=== PATIENT | female | born 1930 | race Caucasian/White ===

== ENCOUNTER → 2016-05-24 | Outpatient (CLI) | payer OTHER, BC ==
[~2016-05-24] MED LIST: ACETAMINOPHEN325 M1 PO; ASA81BEC PO; ASPIRIN325 PO; CALCIUM 500 WI1 EAC3; CALCIUM 600 +1 EAC1 PO; CAPTOPRIL 25 MG25 M1 PO; CENTRUM SILVER1 EAC4 PO; CIPROFLOXACIN500 M3 PO; COUMADIN 3 MG TA3 M1 PO; COUMADIN 3 MG TA3 MG PO; DOXYCYCLINE 10100 M1 PO; FISH OIL 1,001000 M1; FISH OIL 1,001000 M2 PO; FLAX OIL1000 MG; FLAX SEED OIL1000 MG PO; FOSAMAX 70 MG T70 M1 PO; FOSAMAX 70 MG T70 MG PO; HYDROCHLOROTH12.5 M1 PO; HYDROCHLOROTH12.5 MG; HYDROCHLOROTH12.5 MG PO; KEFLEX250 MG PO; LISINOPRIL10 MG PO; LISINOPRIL40 MG PO; MULTIVITAMINS1 EAC7 PO; PACERONE 200 M200 M1 PO
== END ==
LOC: RAD 01:16
DX: Z12.31 Encounter for screening mammogram for malignant neoplasm of breast (principal)

== ENCOUNTER 2017-03-16 11:09 | Emergency (ER) | payer OTHER, BC ==
[~2017-03-16] VITALS: Ht 165.1 cm; Wt 61.2 kg
--- NOTE | ~2017-03-16 | EKG ---
[address] [address] ELECTROCARDIOGRAM REPORT Name: BRIAN REYES Room #: [facility]#: [id number] Admission: 03/16/17 Attend Phys: Discharge: 03/16/17 Date of : 28 Report #: [id number] THIS REPORT FOR: //name// [facility] ED Test Date: 2017-03-16 Test Time: 11:20:56 Pat Name: BRIAN REYES Department: Room: Gender: F Hospice Admitting Clerk: JEN : 1930 Requested By: Cam Turcios Order Number: [id number] MD: Martir Monteiro Measurements Intervals [place] Rate: 81 P: 16 [place]: 242 QRS: -50 QRSD: 132 T: 39 QT: 406 QTc: 472 Interpretive Statements Sinus rhythm Prolonged WA interval RBBB and LAFB Left ventricular hypertrophy Electronically Signed On 03-16-2017 16:52:21 FREIGHT CLAIM INVESTIGATOR by Martir Monteiro [email or web address] <ELECTRONICALLY SIGNED> By: Martir Monteiro MD 03/16/17 1652 1120 1120 MD ASHLEY Marx
[2017-03-16 11:39] LABS: ABSOLUTE NEUTROPHILS 7.1 thou/uL (1.4-8.2); BASOPHILS 0.6 % (0.0-2.0); EOSINOPHILS 1.1 % (0.0-3.0); HEMATOCRIT 44.9 % (37.0-47.0); HEMOGLOBIN 15.6 gm/dL (12.0-15.0); LYMPHOCYTES 19.3 % (24.0-44.0); MCH 32.4 pg (26.0-34.0); MCHC 34.7 g/dL (28.0-37.0); MCV 93.5 fL (80.0-100.0); MONOCYTES 10.9 % (1.0-8.0); PLATELET COUNT 339 thou/uL (150-400); POLYS 68.1 % (36.0-66.0); RDW 13.9 % (10.5-14.5); WBC 10.5 thou/uL (4.0-11.0)
[2017-03-16 11:43] LABS: ANION GAP 13 mmol/L (7-16); BUN 20 mg/dL (7-18); CALCIUM 10.3 mg/dL (8.5-10.1); CHLORIDE 98 mmol/L (98-107); CO2 29 mmol/L (21-32); CREATININE 1.2 mg/dL (0.6-1.0); GLUCOSE 105 mg/dL (74-106); POTASSIUM 3.4 mmol/L (3.5-5.1); SODIUM 140 mmol/L (136-145)
[2017-03-16 11:51] LABS: ALBUMIN 3.9 g/dL (3.4-5.0); SGOT 22 U/L (15-37); SGPT 22 U/L (30-65); TOTAL BILIRUBIN 0.5 mg/dL (<0.1-1.0); TOTAL PROTEIN 8.5 g/dL (6.4-8.2); TROPONIN-I < 0.04 ng/mL (<0.06)
[2017-03-16 11:53] LABS: INR 1.9
[2017-03-16 12:55] LABS: URINE BILIRUBIN NEGATIVE (Negative); URINE BLOOD TRACE (Negative); URINE CLARITY CLEAR; URINE COLOR YELLOW; URINE GLUCOSE-RANDOM* NEGATIVE (Negative); URINE KETONES NEGATIVE (Negative); URINE NITRITE-REFLEX NEGATIVE (Negative); URINE PROTEIN (DIPSTICK) NEGATIVE (Negative); URINE UROBILINOGEN 0.2 E.U./dl (0.2-1.0)
[2017-03-16 12:56] LABS: URINE LEUKOCYTES-REFLEX 3+ (Negative)
[2017-03-16 13:04] LABS: SQUAMOUS 0-3 Few /LPF (0-3)
[2017-03-16 13:05] LABS: WBC CLUMPS Few (None Seen)
[2017-03-16 13:06] LABS: CASTS None Seen /LPF (None Seen); URINE RBC 3-10 Few /HPF (0-2)
[2017-03-16 13:07] LABS: CRYSTALS None Seen /LPF (None Seen); MUCUS 0-3 Light strn/LPF (None Seen)
[2017-03-16 13:59] VITALS: BP 123/63
[2017-03-16] MEDS ORDERED: ANTIVERT25 MG PO (14:07)
[2017-03-16] MEDS ORDERED: CIPRO500 MG PO (14:07)
== END 2017-03-16 14:00 | disposition home or self-care (01) ==
LOC: ER
PROVIDERS: Physician Assistant
DX: N39.0 Urinary tract infection, site not specified (principal); R20.2 Paresthesia of skin; I10 Essential (primary) hypertension; Z88.2 Allergy status to sulfonamides

== ENCOUNTER → 2017-07-28 | Outpatient (CLI) | payer OTHER, BC ==
[~2017-07-28] MED LIST changes: +ANTIVERT25 MG PO; +CIPRO500 MG PO
== END ==
LOC: RAD 00:13
DX: Z12.31 Encounter for screening mammogram for malignant neoplasm of breast (principal)

== ENCOUNTER → 2017-08-03 | Outpatient (CLI) | payer OTHER, BC | LOC: ULTRA 09:03 | DX: N60.01 Solitary cyst of right breast (principal) ==

== ENCOUNTER 2017-12-17 09:23 | Emergency (ER) | payer OTHER, BC ==
[~2017-12-17] VITALS: Ht 162.6 cm; Wt 63.5 kg
[2017-12-17] MEDS ORDERED: AZITHROMYCIN 2250 MG PO (11:05)
[2017-12-17] MEDS ORDERED: TESSALON PERLE100 MG PO (11:05)
== END 2017-12-17 11:25 | disposition home or self-care (01) ==
LOC: ER 09:23
DX: J18.8 Other pneumonia, unspecified organism (principal); Z88.2 Allergy status to sulfonamides; Z95.0 Presence of cardiac pacemaker

== ENCOUNTER → 2018-01-17 | Outpatient (CLI) | payer OTHER, BC ==
[~2018-01-17] MED LIST changes: +AZITHROMYCIN 2250 MG PO; +TESSALON PERLE100 MG PO
== END ==
LOC: ULTRA 10:36
DX: N63.11 Unspecified lump in the right breast, upper outer quadrant (principal)

== ENCOUNTER → 2018-05-21 | Outpatient (CLI) | payer OTHER, BC ==
--- NOTE | 2018-05-21 09:56 | 2DMMODE ---
[facility] [place] [address] 2 D/M-MODE ECHOCARDIOGRAM Name: BRIAN REYES Room #: [facility]#: [id number] ������������� Admission: 05/21/18 ������������� Attend Phys: Martir Monteiro Discharge: ��� ������������� ��� Date of : 28 Date of Service: 05/21/18 0956 �� Report #: [id number] �������� ��������������������������������������������[id number] THIS REPORT FOR: //name// APPROVED REPORT Study performed: 05/21/2018 09:09:20 EXAM: Comprehensive 2D, Doppler, and color-flow Echocardiogram Patient Location: Out-Patient Status: routine BSA: 1.66 HR: 69 bpm BP: 128/60 mmHg Rhythm: Pacemaker Other Information Study Quality: Good Indications Afib-Pacemaker. 2D Dimensions RVDd: 36.14 mm IVSd: 11.36 (7-11mm) LVOT Diam: 19.19 (18-24mm) LVDd: 37.89 mm PWd: 7.57 (7-11mm) Ascending Ao: 39.27 (22-36mm) LVDs: 27.96 (25-40mm) Aortic Root: 33.40 mm Volumes Left Atrial Volume (Systole) Single Plane 4CH: 48.31 mL Single Plane 2CH: 62.47 mL LA ESV Index: 37.00 mL/m2 Aortic Valve AoV Peak Edgardo.: 2.55 m/s AO Peak Gr.: 26.05 mmHg LVOT Max P.15 mmHg AO Mean Gr.: 15.16 mmHg AO V2 Mean: 1.89 m/s LVOT Max V: 1.02 m/s AO V2 VTI: 56.54 cm FILIBERTO Vmax: 1.15 cm2 AI Vmax: 4.36 m/s AI Kings: 2.93 m/s2 AI PHT: 431.46 ms [facility] [place] [address] 2 D/M-MODE ECHOCARDIOGRAM Name: BRIAN REYES [id number] ������������� Admission: 05/21/18 ������������� Attend Phys: Martir Monteiro Discharge: ��� ������������� ��� Date of : 28 Date of Service: 05/21/18 0956 �� Report #: [id number] �������� ��������������������������������������������[id number] Mitral Valve E/A Ratio: 0.6 MV Decel. Time: 307.43 ms MV E Max Edgardo.: 0.74 m/s MV A Edgardo.: 1.29 m/s MV PHT: 89.15 ms IVRT: 96.89 ms Pulmonary Valve PV Peak Edgardo.: 1.13 m/s PV Peak Gr.: 5.09 mmHg Pulmonary Vein P Vein S: 0.36 m/s P Vein A: 0.20 m/s P Vein D: 0.32 m/s P Vein S/D Ratio: 1.13 Tricuspid Valve TR Peak Edgardo.: 3.60 m/s RAP Estimate: 5.00 mmHg TR Peak Gr.: 51.96 mmHg PA Pressure: 57.00 mmHg Left Ventricle The left ventricle is normal size. Mild basal septal hypertrophy is present. Left ventricular systolic function is normal. LVEF is 55-60%. Mild diastolic dysfunction is present (impaired relaxation pattern). Right Ventricle The right ventricle is normal size. The right ventricular systolic function is normal. Pacemaker lead is present in the right ventricle. Atria Left atrium is mildly dilated. The right atrium size is normal. Aortic Valve Aortic valve is moderately calcified. Mild to moderate aortic regurgitation. 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 Maximum pressure gradient of 26 mmHg and mean pressure gradient of 16 mmHg. Mitral Valve Mitral valve leaflets are mildly thickened. Mild mitral annular calcification. Mild to moderate mitral regurgitation. [facility] [address] [place] [address] 2 D/M-MODE ECHOCARDIOGRAM Name: REYESBRIAN Room #: REG [facility]#: [id number] ������������� Admission: 05/21/18 ������������� Attend Phys: Martir Chaudhary Couchonnal Discharge: ��� ������������� ��� Date of : 28 Date of Service: 05/21/18 0956 �� Report #: [id number] �������� ��������������������������������������������[id number] Tricuspid Valve The tricuspid valve is normal in structure. Moderate tricuspid regurgitation. Estimated PAP is 55-60mmHg. Pulmonic Valve The pulmonary valve is normal in structure. Trace pulmonic regurgitation. Great Vessels The aortic root is normal in size. Ascending aorta is mildly dilated at 3.9cm. IVC is normal in size and collapses >50% with inspiration. Pericardium There is no pericardial effusion. <Conclusion> The left ventricle is normal size. Left ventricular systolic function is normal. Mild diastolic dysfunction is present (impaired relaxation pattern). The right ventricle is normal size. Pacemaker lead is present in the right ventricle. Left atrium is mildly dilated. Mild to moderate aortic regurgitation. 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 Mild to moderate mitral regurgitation. Moderate tricuspid regurgitation. Estimated PAP is 55-60mmHg. ��������������������������������������������� <ELECTRONICALLY SIGNED> ���������������������������������������� By: Abad Zarate MD ��������������������������������������������� 05/21/1856 5 5 Abad Zarate MD /INF
== END ==
LOC: CV 08:47
DX: I08.3 Combined rheumatic disorders of mitral, aortic and tricuspid valves (principal); I48.91 Unspecified atrial fibrillation

== ENCOUNTER 2018-12-17 09:50 | Emergency (ER) | payer OTHER, BC ==
[~2018-12-17] VITALS: Ht 165.1 cm; Wt 57.1 kg
[2018-12-17] MEDS ORDERED: ZESTRIL20 MG PO ×2 (10:02)
[2018-12-17] MEDS ORDERED: NORVASC5 MG PO ×2 (10:02)
[2018-12-17] MEDS ORDERED: PACERONE100 MG PO ×2 (10:02)
[2018-12-17 10:29] LABS: ABSOLUTE NEUTROPHILS 5.5 thou/uL (1.4-8.2); BASOPHILS 0.5 % (0.0-2.0); EOSINOPHILS 1.2 % (0.0-3.0); HEMOGLOBIN 14.5 gm/dL (12.0-15.0); LYMPHOCYTES 18.8 % (24.0-44.0); MCH 32.1 pg (26.0-34.0); MCHC 33.7 g/dL (28.0-37.0); MCV 95.4 fL (80.0-100.0); MONOCYTES 10.3 % (1.0-8.0); PLATELET COUNT 339 thou/uL (150-400); POLYS 69.2 % (36.0-66.0); RBC 4.51 mil/uL (4.20-5.00); RDW 14.2 % (10.5-14.5)
[2018-12-17 10:33] LABS: ANION GAP 8 mmol/L (7-16); BUN 16 mg/dL (7-18); CALCIUM 9.6 mg/dL (8.5-10.1); CHLORIDE 100 mmol/L (98-107); CO2 29 mmol/L (21-32); CREATININE 1.1 mg/dL (0.6-1.0); GLUCOSE 96 mg/dL (74-106); POTASSIUM 3.5 mmol/L (3.5-5.1); SODIUM 137 mmol/L (136-145)
[2018-12-17 10:40] LABS: APTT 32.8 Seconds (24.5-32.8); PROTIME 27.2 Seconds (9.3-11.4)
[2018-12-17 10:42] LABS: INR 2.6
[2018-12-17 10:44] LABS: ALBUMIN 3.4 g/dL (3.4-5.0); MAGNESIUM 2.1 mg/dL (1.8-2.4); SGOT 18 U/L (15-37); SGPT 12 U/L (30-65); TOTAL BILIRUBIN 0.4 mg/dL (<0.1-1.0); TOTAL PROTEIN 8.2 g/dL (6.4-8.2); TROPONIN-I <0.06 ng/mL (<0.06)
[2018-12-17 11:30] LABS: URINE BILIRUBIN NEGATIVE (Negative); URINE BLOOD TRACE (Negative); URINE CLARITY CLEAR; URINE COLOR YELLOW; URINE GLUCOSE-RANDOM* NEGATIVE (Negative); URINE KETONES NEGATIVE (Negative); URINE NITRITE-REFLEX NEGATIVE (Negative); URINE PROTEIN (DIPSTICK) NEGATIVE (Negative); URINE SPECIFIC GRAVITY <= 1.005 (1.005-1.035); URINE UROBILINOGEN 0.2 E.U./dl (0.2-1.0)
[2018-12-17 11:31] LABS: URINE LEUKOCYTES-REFLEX 2+ (Negative)
[2018-12-17 11:43] LABS: BACTERIA-REFLEX 1-9 Few /HPF (None Seen); CASTS None Seen /LPF (None Seen); CRYSTALS None Seen /LPF (None Seen); SQUAMOUS 0-3 Few /LPF (0-3); URINE RBC 0-2 Rare /HPF (0-2); URINE WBC-REFLEX 6-15 Few /HPF (0-5)
[2018-12-17 11:44] LABS: AMP/METHAMP Negative (Negative); BARBITURATES Negative (Negative); BENZODIAZEPINES Negative (Negative); COCAINE Negative (Negative); METHADONE Negative (Negative); OPIATES Negative (Negative); PCP Negative (Negative)
[2018-12-17] MEDS ORDERED: VALIUM2 MG PO (12:25)
[2018-12-17] MEDS ORDERED: KEFLEX500 M1 PO (12:36)
[2018-12-17 13:02] VITALS: BP 166/79
--- NOTE | 2018-12-18 08:34 | EKG ---
[place] [address] [facility] [employer] [address] ELECTROCARDIOGRAM REPORT Name: BRIAN REYES Room #: [facility]#: [id number] Admission: 12/17/18 Attend Phys: Discharge: 12/17/18 Date of : 28 Report #: [id number] THIS REPORT FOR: //name// [facility] ED Test Date: 2018-12-17 Test Time: 10:33:09 Pat Name: BRIAN REYES Department: Room: Gender: F Bereavement Program Coordinator: YESSY : 1930 Requested By: Indio Euceda Order Number: [id number] MD: Jimmy Crawford Measurements Intervals [place] Rate: 60 P: -31 ND: 306 QRS: -43 QRSD: 123 T: -10 QT: 488 QTc: 488 Interpretive Statements Sinus rhythm with atrial pacing Prolonged ND interval RBBB and LAFB Left ventricular hypertrophy Compared to ECG 03/16/2017 11:20:56 Atrial pacing is now present Electronically Signed On 12-18-2018 8:34:36 CDT by Jimmy Crawford [email or web address] <ELECTRONICALLY SIGNED> By: Jimmy Crawford MD, [facility] 12/18/18 0834 1033 1033 Jimmy Crawford MD, [facility] /EPI
--- NOTE | 2018-12-19 15:34 | H ---
[facility] [address] [place] [address] HISTORY AND PHYSICAL Name: BRIAN LANGFORD Room #: DEP Ralph#: [id number] Admission: 12/17/18 Attend Phys: Discharge: 12/17/18 Date of : 28 Report #: [id number] THIS REPORT FOR: //name// CC: Indio Culver MD DATE OF SERVICE: 12/17/2018 CHIEF COMPLAINT: Fall. HISTORY OF PRESENT ILLNESS: The patient is an 88-year-old white female who lives in the [facility] and has been complaining of some "vertigo" recently. She was actually seen in the Emergency Room the day prior to this admission with complaints of loss of balance. She was felt to be otherwise medically stable and treated for urinary tract infection and discharged back home again. She reports that last evening, she suddenly fell without warning and landed on her left side and was very much a week and then could not get up under her own power. Her , also elderly, went across the street to get the help of a neighbor and they were able to get her up her and put her on the couch where she remained for the rest of the night. She did notice at that time that she was having difficulty with her speaking and with continuing weakness on her left side, especially in her left leg and left arm. I specifically asked her about difficulties with vision and recognizing people and she denied being a problem, but it is apparent from the Emergency physician's note that she actually was having difficulty focusing on the players while watching the [employer] baseball game on television. She specifically told me that she had problems with blurring of her speech last night, but that was much better today. She is admitted for further evaluation and treatment. PAST MEDICAL HISTORY: Chronic hypertension, osteoarthritis multiple sites, sick sinus syndrome with permanent pacemaker placement approximately 5 years ago. She has had problems on and off in the past with vertigo. She has had episodes of going back documented at least as far as 2011 where she noted neurologic deficits such as numbness and tingling transiently in her left arm and left leg. Prior workups were essentially negative for bleeding, tumor or stroke, but presence of atherosclerotic disease in the intracranial arterial circulation was documented. She also has a history of hyperlipidemia and osteoporosis. FAMILY HISTORY: Significant for heart attack in her mother. Her father of cancer of the liver. I believe 2 of the patient's 4 children have of unrelated causes. ALLERGIES: Please note that the patient has [place] [address] HISTORY AND PHYSICAL Name: BRIAN LANGFORD Room #: DEP RA Rosas#: [id number] Admission: 12/17/18 Attend Phys: Discharge: 12/17/18 Date of : 28 Report #: [id number] CURRENT MEDICATIONS: Include multivitamin, calcium with vitamin D3, Fosamax weekly, warfarin 3 mg daily, lisinopril 20 mg daily, amiodarone 100 mg daily by mouth, and amlodipine 5 mg by mouth daily. She was previously on larger doses of lisinopril and was previously on a less frequent dose of amlodipine because of problems with dizziness in the past year and apparent orthostatic hypotension. SOCIAL HISTORY: The patient is to [employer]. She has no vices. In particular, she has never been a smoker or abuse alcohol or recreational drugs. REVIEW OF SYSTEMS: The patient denies headache. The patient denies dizziness at this time or last night. The patient denies any vision changes, but please see the Emergency Room physician's note with regards to her difficulty recognizing baseball players on her television set just after her fall. No vertigo. No nausea or vomiting. No chest pain or shortness of breath. No new joint pains or back pain. She does have some left side pain in the lower thoracic cage laterally that she has only noticed since the fall. She denies any difficulties with bladder or bowel continence. She denies any loss of consciousness. She noticed that the weakness on the left side and the difficulty with speech that both problems seemed to be gradually going away, but have not resolved completely yet approximately 26 hours in her symptoms. PHYSICAL EXAMINATION: GENERAL: The patient is an exceedingly pleasant elderly white female. HEENT: Extraocular muscles are intact. The pupils react normally and equally to light. The oropharynx is slightly dry and pink without lesions, exudates or lacerations. Sinuses are nontender. Hearing is very slightly diminished on the right side, and this is a chronic finding. NECK: No carotid bruit noted. No neck masses. Good range of motion of the neck. LUNGS: Clear to auscultation bilaterally. CARDIOVASCULAR: Reveals a regular rhythm with a 2-3/6 systolic ejection murmur chronically at time of the exam. The pacemaker is noted in the left pre-axillary fossa. ABDOMEN: Soft. Bowel sounds are present, no visceromegaly or masses. There is slight tenderness of the left lateral lower thorax without evidence of bruising or fracture. EXTREMITIES: Without cyanosis or clubbing or peripheral edema. The patient actually has very good cell maker strength bilaterally. Her extremities, she is able to move all 4 of them independently of one another and on command. She does have some vague weakness that is mildly greater on the left than the right. I did not assess her gait today, but she tells me that with assistance she was able to walk from her gurney to the bathroom when she was in the Emergency Room hours earlier today. NEUROLOGIC: Cranial nerves 2-12 are intact. No Babinski sign on either side [facility] [address] [place] [address] HISTORY AND PHYSICAL Name: AMYBRIAN Roldan Room #: DEP [facility].#: [id number] Admission: 12/17/18 Attend Phys: Discharge: 12/17/18 Date of : 28 Report #: [id number] noted. The sensory exam is grossly equal and normal bilaterally. Motor deficit as outlined above and minimal at this time. Again gait was not assessed by me during this visit. No rectal or breast exam was performed during this physical. On 12/17/2018 Emergency Room visit had the following objective lab and radiography and EKG findings: EKG showed a sinus rhythm with atrial pacing, prolonged AZ interval, presence of bifascicular block and left ventricular hypertrophy noted. The only change compared with EKG from February 2017 was the presence of atrial pacing. The rate at the time of this exam was 60 beats per minute. The CBC showed white blood cell count of 8000 with 69.2% neutrophils, 18.8% lymphocytes, 10.3% monocytes, 1.2% eosinophils and basophils is 0.5%. The absolute neutrophil count was 5500, hemoglobin 14.5, hematocrit 43.0%. The red blood cell indices are normal and the platelet count is 339,000. Protime yesterday in the morning was 27.2 with an INR of 2.6 and a PTT of 32.8. The chemistry showed a sodium 137, potassium 3.5, chloride of 100, bicarbonate 29, BUN of 16, creatinine 1.1. The anion gap is 8, glucose was 96, nonfasting. AST was 18, ALT was 12. Total bilirubin was 0.4, calcium was 9.6, magnesium 2.1, total protein 8.2, albumin 3.4. The estimated GFR was 47, alkaline phosphatase was 79 and normal. Alcohol level was negative. TSH at that time was 2.477 and in the normal range. Urinalysis done that day showed 6-15 white blood cells and is otherwise fairly benign. CT head done at that time showed no evidence of acute intracranial hemorrhage or other acute intracranial abnormality. Rapid drug screen was also done that day and it was negative for amphetamines, methamphetamines, barbiturates, benzodiazepines, cocaine, methadone, opiates, PCP and marijuana. Chest x-ray done that day showed no acute cardiopulmonary abnormality. EKG from the date of this admission shows a sinus rhythm, left atrial enlargement, again right bundle branch block and left anterior fascicular block and absence of atrial paced complexes and a rate of 67 beats per minute. The hematology showed white blood cell count of 10,900 with 75.8% neutrophils, 13.2% lymphocytes, 9.9% monocytes, 0.7% eosinophils, and 0.4% basophils. Absolute neutrophil count was borderline elevated at 8300, hemoglobin was 14.6, hematocrit 42.7. Normal red blood cell indices and again platelet count of 326,000. Protime was done today and the INR was 2.2 and otherwise unremarkable. The chemistry showed a sodium 138, potassium 4.4, chloride 102, bicarbonate 31, BUN of 17, creatinine 1.1, anion gap was 5. Glucose 130, nonfasting. The AST was 18, ALT was 16, alkaline phosphatase was 91, total bilirubin of 0.5. Calcium was slightly elevated at 10.2 with an upper limits of normal at 10.1, total protein was 8.0 and the albumin was 3.3, which is slightly low. Again estimated GFR was 47. CT head without contrast on date of admission showed no CT evidence of acute intracranial abnormality. It did also show age-related atrophy and advanced chronic microvascular ischemic changes, also chronic right sphenoid sinusitis with near complete opacification. The CT stroke protocol and perfusion studies including CT angiogram of the neck with contrast, CT of the [place], three reconstructions of the head and neck and CT perfusion with contrast were [facility] [address] [address] HISTORY AND PHYSICAL Name: AMYBRIAN M [id number] Admission: 12/17/18 Attend Phys: Discharge: 12/17/18 Date of : 29 Report #: [id number] performed and to summarize briefly. No acute ischemia was noted, although the CT perfusion study suggested general decreased blood flow over the posterior fossa and further comment that the decreases greater over the right hemisphere as compared to the left, but no other findings to suggest significant infarction or reversibility identified. Mention is also made of the fact that while the MRI would normally be recommended, it was at least at this time not an option given her pacemaker. Urinalysis on the day of admission was similar to that from the day before. Please note that the patient was seen by neurologist, Dr. Culver in the Emergency Room. Dr. Culver's impression was that the patient appeared to have a lacunar stroke. The neurologist was under the impression that the MRI might be able to be done in consultation with the patient's director of marketing operations. I will consult them and defer to their judgment. Given her age and the age of the apparent stroke, she is not a good candidate for any significant interventions at this time otherwise. ASSESSMENT AND PLAN: 1. Lacunar stroke with resolving left hemiparesis and transient dysarthric speech and apparent dysphagia (she had a bedside swallow evaluation in the Emergency Room) -- At this point, the patient is on an altered diet to help decrease risk of aspiration while she is undergoing workup for swallowing deficits. Lipid studies have apparently been ordered to assess the effect of her statin and whether changes need to be made there. Aggressive blood pressure lowering in the short term is not necessarily a good idea, but it certainly a laudable long-term goal. She is adequately anticoagulated with her warfarin. I am curious about whether she would get more benefit or more risks from the addition of an antiplatelet agent and will defer to the Neurology and analytical consultant with regards to this. 2. Hypertension. Continue current medication regimen as tolerated by the patient and more aggressively after she recovers from this stroke. 3. Hyperlipidemia. Await lipids and then decide on adequacy of statin regimen for the future. 4. Osteoarthritis, multiple sites. 5. Osteoporosis. 6. Fall due to stroke above. We will consult Physical and Occupational Therapy. I am not sure if she would benefit from inpatient therapy or not at this time, but we will ask for Dr. Matthews's guidance in that matter as well. <ELECTRONICALLY SIGNED> By: Elliott Salgado MD 12/19/18 1534 31 17 Elliott Salgado MD /nt
== END 2018-12-17 12:48 | disposition home or self-care (01) ==
LOC: ER 09:50
PROVIDERS: Emergency Medicine
DX: N39.0 Urinary tract infection, site not specified (principal); I10 Essential (primary) hypertension; R26.81 Unsteadiness on feet; Z95.0 Presence of cardiac pacemaker; Z88.2 Allergy status to sulfonamides

== ENCOUNTER 2018-12-18 11:30 | Inpatient (IN) | payer OTHER, BC ==
[2018-12-18] VITALS (8 sets, daily range): BP systolic 126–162; BP diastolic 60–97
[~2018-12-18] VITALS: Ht 165.1 cm; Wt 61.5 kg
[~2018-12-18 11:30] MED LIST changes: +KEFLEX500 M1 PO; +NORVASC5 MG PO; +PACERONE100 MG PO; +VALIUM2 MG PO; +ZESTRIL20 MG PO
[2018-12-18 12:49] LABS: ABSOLUTE NEUTROPHILS 8.3 thou/uL (1.4-8.2); BASOPHILS 0.4 % (0.0-2.0); EOSINOPHILS 0.7 % (0.0-3.0); HEMATOCRIT 42.7 % (37.0-47.0); HEMOGLOBIN 14.6 gm/dL (12.0-15.0); LYMPHOCYTES 13.2 % (24.0-44.0); MCH 32.1 pg (26.0-34.0); MCHC 34.3 g/dL (28.0-37.0); MCV 93.8 fL (80.0-100.0); MONOCYTES 9.9 % (1.0-8.0); PLATELET COUNT 326 thou/uL (150-400); POLYS 75.8 % (36.0-66.0); RBC 4.55 mil/uL (4.20-5.00); RDW 13.9 % (10.5-14.5); WBC 10.9 thou/uL (4.0-11.0)
[2018-12-18 12:52] LABS: ANION GAP 5 mmol/L (7-16); BUN 17 mg/dL (7-18); CALCIUM 10.2 mg/dL (8.5-10.1); CHLORIDE 102 mmol/L (98-107); CO2 31 mmol/L (21-32); CREATININE 1.1 mg/dL (0.6-1.0); GLUCOSE 113 mg/dL (74-106); POTASSIUM 4.4 mmol/L (3.5-5.1); SODIUM 138 mmol/L (136-145)
[2018-12-18 13:02] LABS: ALBUMIN 3.3 g/dL (3.4-5.0); SGOT 18 U/L (15-37); SGPT 16 U/L (30-65); TOTAL BILIRUBIN 0.5 mg/dL (<0.1-1.0); TROPONIN-I <0.06 ng/mL (<0.06)
[2018-12-18 13:05] LABS: APTT 32.5 Seconds (24.5-32.8)
[2018-12-18 13:07] LABS: INR 2.2
[2018-12-18 13:45] LABS: URINE BILIRUBIN NEGATIVE (Negative); URINE BLOOD TRACE (Negative); URINE CLARITY CLEAR; URINE COLOR YELLOW; URINE GLUCOSE-RANDOM* NEGATIVE (Negative); URINE KETONES NEGATIVE (Negative); URINE NITRITE-REFLEX NEGATIVE (Negative); URINE PROTEIN (DIPSTICK) NEGATIVE (Negative); URINE SPECIFIC GRAVITY <= 1.005 (1.005-1.035); URINE UROBILINOGEN 0.2 E.U./dl (0.2-1.0)
[2018-12-18 13:48] LABS: URINE LEUKOCYTES-REFLEX 3+ (Negative)
[2018-12-18 13:58] LABS: SQUAMOUS 0-3 Few /LPF (0-3)
[2018-12-18 13:59] LABS: CASTS None Seen /LPF (None Seen); MUCUS 0-3 Light strn/LPF (None Seen); URINE RBC 0-2 Rare /HPF (0-2)
[2018-12-18 14:00] LABS: BACTERIA-REFLEX 1-9 Few /HPF (None Seen); CRYSTALS None Seen /LPF (None Seen)
--- NOTE | 2018-12-18 14:00 | NUR ---
DR RACHEL OFFICE CONTACTED REGARDING PATIENTS PACEMAKER AND MRI COMPATIBILITY. PER OFFICE STAFF- PACEMAKER IS NOT COMPATIBLE.
--- NOTE | 2018-12-18 16:43 | NUR ---
PATIENT ARRIVED FROM ED VIA STRECHER, ALERT AND ORIENTED X4. VPACED ON THE MONITOR, BP 162/68, AND 157/71 AT THIS TIME. POC INTIATED AND WILL INFORM DR GUZMAN THAT PATIENT IS IN 212. AND WILL CONTINUE TO MONITOR.
[2018-12-19 03:56] VITALS: BP 136/64
[2018-12-19 05:03] LABS: INR 2.4; PROTIME 24.7 Seconds (9.3-11.4)
--- NOTE | 2018-12-19 05:21 | NUR ---
ASSUMED PT CARE AT 1900. PT IS ALERT AND ORIENTED BUT FORGETFUL. NO SIGN OF DISTRESS NOTED. PT SEEN BY PHYSICIAN. PTIS STABLE AND LAYING IN BED. PT IS WEAK. ASSESSMENT COMPLETED AND DOCUMENTED. PT DENIES ANY PAIN. NO FAMILY AT BEDSIDE. DENIES ANY FURTHER NEEDS AT THIS TIME.
[2018-12-19 05:36] LABS: CHOLESTEROL 209 mg/dL (<200); HDL CHOLESTEROL 37 mg/dL (>40); LDL CHOLESTEROL 146 mg/dL (<100); TC:HDL 5.6 Ratio (Not establshd); TRIGLYCERIDE 131 mg/dL (<150); VLDL 26 mg/dL (<40)
[2018-12-19 05:53] LABS: SERUM ASSESSMENT Clear
[2018-12-19 07:25] VITALS: BP 148/106
--- NOTE | 2018-12-19 08:06 | EKG ---
[address] [place] [address] ELECTROCARDIOGRAM REPORT Name: BRIAN REYES Room #: 212-P ADM IN .R.#: [id number] Admission: 12/18/18 Attend Phys: Elliott Salgado MD Discharge: Date of : 28 Report #: [id number] THIS REPORT FOR: //name// [facility] ED Test Date: 2018-12-18 Test Time: 13:50:11 Pat Name: BRIAN REYES Department: Room: [facility] Gender: F Registered Dental Assistant: ALEXANDRA : 1930 Requested By: Indio Euceda Order Number: [id number] MD: Martir Monteiro Measurements Intervals [place] Rate: 67 P: 0 [place]: 184 QRS: -44 QRSD: 135 T: -18 QT: 470 QTc: 497 Interpretive Statements Sinus rhythm Left atrial enlargement RBBB and LAFB Left ventricular hypertrophy Compared to ECG 12/17/2018 10:33:09 Atrial abnormality now present Atrial-paced complex(es) or rhythm no longer present First degree AV block no longer present Electronically Signed On 12-19-2018 8:06:09 CDT by Martir Monteiro [email or web address] <ELECTRONICALLY SIGNED> By: Martir Monteiro MD 12/19/18 0806 1350 1350 Martir Monteiro MD /EPI
[2018-12-19 12:02] LABS: CALCIUM 8.8 mg/dL (8.5-10.1); POTASSIUM 3.7 mmol/L (3.5-5.1)
--- NOTE | 2018-12-19 13:10 | 2DMMODE ---
[facility] [place] [employer] [place] [address] 2 D/M-MODE ECHOCARDIOGRAM Name: REYESBRIAN M Room #: 212-P [facility]#: [id number] Admission: 12/18/18 Attend Phys: Elliott Salgado MD Discharge: Date of : 28 Report #: [id number] THIS REPORT FOR: //name// APPROVED REPORT Study performed: 12/19/2018 10:54:59 EXAM: Comprehensive 2D, Doppler, and color-flow Echocardiogram Patient Location: Echo lab Status: routine BSA: 1.65 HR: 62 bpm BP: 136/64 mmHg Rhythm: NSR Other Information Study Quality: Adequate Indications CVA/TIA HX: Afib, Pacemaker, HTN, HLP, PVD Echo Enhancing Agent Indication: Rule Out Septal Defect Agent(s) / Amount(s) Used: Agitated Saline 8 cc Comments: No shunting noted by contrast bubble injection. 2D Dimensions RVDd: 28.58 mm IVSd: 12.80 (7-11mm) LVOT Diam: 18.76 (18-24mm) LVDd: 36.71 mm PWd: 9.20 (7-11mm) Ascending Ao: 38.72 (22-36mm) LVDs: 27.86 (25-40mm) Aortic Root: 34.82 mm Volumes Left Atrial Volume (Systole) Single Plane 4CH: 57.26 mL Aortic Valve AoV Peak Edgardo.: 2.81 m/s AO Peak Gr.: 31.60 mmHg LVOT Max P.97 mmHg AO Mean Gr.: 15.48 mmHg LVOT Mean P.37 mmHg AO V2 Mean: 1.86 m/s LVOT Max V: 1.12 m/s [facility] [employer] [place] [address] 2 D/M-MODE ECHOCARDIOGRAM Name: BRIAN REYES Room #: [facility]-[address] [facility]#: [id number] Admission: 12/18/18 Attend Phys: Elliott Salgado MD Discharge: Date of : 28 Report #: [id number] AO V2 VTI: 61.81 cm LVOT Mean V: 0.73 m/s FILIBERTO (VTI): 1.14 cm2 LVOT V1 VTI: 25.43 cm FILIBERTO Vmax: 1.10 cm2 AI Vmax: 4.65 m/s SV (LVOT): 70.27 mL AI [place]: 2.94 m/s2 AI PHT: 470.32 ms Mitral Valve E/A Ratio: 0.8 MV Decel. Time: 230.70 ms MV E Max Edgardo.: 0.76 m/s MV A Edgardo.: 1.00 m/s MV PHT: 66.90 ms IVRT: 87.66 ms Pulmonary Valve PV Peak Edgardo.: 1.12 m/s PV Peak Gr.: 5.02 mmHg Tricuspid Valve TR Peak Edgardo.: 3.25 m/s TR Peak Gr.: 42.24 mmHg Left Ventricle The left ventricle is normal size. There is normal LV segmental wall motion. Mild basal septal hypertrophy is present. The left ventricular systolic function is normal. The left ventricular ejection fraction is within the normal range. LVEF is 65-70%. Mild diastolic dysfunction is present (impaired relaxation pattern). Right Ventricle The right ventricle is normal size. The right ventricular systolic function is normal. Pacemaker lead is present in the right ventricle. Atria Left atrium is mildly dilated. No shunting noted by contrast bubble injection. The right atrium size is normal. Aortic Valve Aortic valve is moderately calcified, mildly stenotic. Mild to moderate aortic regurgitation. Calculated aortic valve area is 1.1 cm2 with maximum pressure gradient of 31 mmHg and mean pressure gradient of 15 mmHg. Mitral Valve Mitral valve leaflets are mildly thickened[place] [address] 2 D/M-MODE ECHOCARDIOGRAM Name: BRIAN REYES Room #: 212-P [facility] ..#: [id number] Admission: 12/18/18 Attend Phys: Elliott Salgado MD Discharge: Date of : 28 Report #: [id number] regurgitation. No evidence of mitral valve stenosis. Tricuspid Valve The tricuspid valve is normal in structure. Moderate tricuspid regurgitation. Estimated PAP is 50mmHg Pulmonic Valve The pulmonary valve is normal in structure. Mild pulmonic regurgitation. Great Vessels The aortic root is normal in size. The ascending aorta is mildly dilated (3.9cm). The inferior vena cava is not well visualized. Pericardium There is no pericardial effusion. <Conclusion> The left ventricular systolic function is normal. There is normal LV segmental wall motion. LVEF is 65-70%. Mild diastolic dysfunction No shunting noted by contrast bubble injection. Left atrium is mildly dilated. Aortic valve is moderately calcified, mildly stenotic. Mild to moderate aortic regurgitation. Calculated aortic valve area is 1.1 cm2 with maximum pressure gradient of 31 mmHg and mean pressure gradient of 15 mmHg. Mitral valve leaflets are mildly thickened. Mild to moderate mitral regurgitation. Moderate tricuspid regurgitation. Estimated pulmonary artery pressure of 50mmHg The ascending aorta is mildly dilated (3.9cm). There is no pericardial effusion. <ELECTRONICALLY SIGNED> By: Jimmy Crawford MD, FACC 12/19/18 1310 09 09 Jimmy Crawford MD, FACC /INF
--- NOTE | 2018-12-19 14:52 | NUR ---
Nutrition: pt admitted with possible CVA, weakness. Assessed due to consult related to diet. Pt previously placed on mechanical chopped diet by ST but now only on heart healthy restrictions. PMH: HTN, HLD, PPM, CAD. Cholesterol 219 LDL 146. Started on a statin. Pt reports good appetite and no weight changes. Discussed need for heart healthy diet and pt prefers to read through materials. RD left packet with name/#. Therapy evaling pt for possible 5N stay. Advanced age of [address] as low nutrition risk for now but RD remains available PRN for needs.
--- NOTE | 2018-12-19 16:21 | NUR ---
Chart reviewed and case discussed with the care team. Pt admitted from home with a new stroke. She lives with her spouse and has been indep prior to admission. 5N rehab eval is in progress along with PT/OT and ST treatments. Will check with bed availability for 5N.
[2018-12-19 17:04] VITALS: BP 164/69
--- NOTE | 2018-12-19 18:33 | NUR ---
ASSUMMED PT CARE AT APPROXIMATELY 0700. PT A&O X4. ASSESSMENT CHARTED. FALL PRECAUTIONS IN PLACE. PT DENIES HAVING CHEST PAIN. PT STATED SHE HAS PAIN IN HER L HIP. PT RECEIVED ANALGESICS. PT STATED ANALGESICS HELPED RELEIVE PAIN. PT'S LUNG GALEANA AUSCULATED AND HAVE FINE CRACKLES. NOTIFIED. STATED TO DC IV FLUIDS AND TO GIVE LASIX. ORDERS IMPLEMENTED. CONTINUING TO MONITOR LUNG FLEIDS. PT STATES SHE FEELS HER L SIDE IS "STRONGER THAN YESTERDAY." PT AND FAMILY EDUCATED C POC. PT AND FAMILY STATED UNDERSTANDING AND DENIED HAVING FURTHER QUESTIONS. PT COMFORTABLE IN BED. PT AMBULATES C 1 ASSIST. PT DENIES HAVING FURTHER CONCERNS.
[2018-12-19 20:13] VITALS: BP 153/68
[2018-12-20 04:19] VITALS: BP 145/54
[2018-12-20 06:04] LABS: CALCIUM 9.4 mg/dL (8.5-10.1); CREATININE 0.9 mg/dL (0.6-1.0); MAGNESIUM 2.1 mg/dL (1.8-2.4); PHOSPHORUS 3.4 mg/dL (2.5-4.9); POTASSIUM 3.8 mmol/L (3.5-5.1)
--- NOTE | 2018-12-20 06:07 | NUR ---
SHIFT NOTE: PATIENT ALERT AND ORIENTED. DENIES CONCERN. NEUROCHECKS PER THE ORDER WITH NO ACUTE CHANGES. UP TO BEDSIDE COMMODE WITH MINIMAL ASSIST. VOICED FEELING MUCH STRONGER THAN WHEN SHE CAME ON HER LEFT SIDE. SOME MILD DISCOMFORT ON LEFT SIDE WITH MOVEMENT AND BETTER AT REST. DENIES OTHER CONCERN OR COMPLAINT. WILL CONTINUE WITH CURRENT PLAN OF CARE AND TO MONITOR.
[2018-12-20 07:18] VITALS: BP 157/62
--- NOTE | 2018-12-20 10:38 | NUR ---
This RN, Meter Attendant to see patient this morning. pt sitting up in chair next to bed with rn giving po medication. pt complains that her speech is coming out right. I did observe pt's speech somewhat slower than before. She was trying to drink water from a straw to take meds but had difficulty with notiable drooling. Her left arm and leg are still weak however have improved since ER admission. Dr. Culver notified and arrived at bedside and assesses patient. patient moved to bed laying flat and an order of NS 500ml bolus ordered. after a few minutes of laying flat patient reports her speech sounds better which i agree. Will continue to monitor and follow Mrs. Langford.
[2018-12-20 11:41] VITALS: BP 170/75
[2018-12-20] MEDS ORDERED: ASA5UEC PO ×2 (15:39)
[2018-12-20] MEDS ORDERED: LIPITOR40 MG PO ×2 (15:39)
[2018-12-20] MEDS ORDERED: ACETAMINOPHEN325 M1 PO ×2 (15:40)
--- NOTE | 2018-12-20 16:55 | NUR ---
ASSUMED CARE PT AT SHIFT CHANGE. ASSESSMENTS CHARTED. MEDS GIVEN PER APR. PT ALERT AND ORIENTED, VSS, DENIES PAIN. O2 SATS WNL ON ROOM AIR. PT UP X1 ASSIST TOLERATING WELL. WORKED WITH PHYS THERAPY THIS SHIFT TOLERATED WELL. PT C/O SLURRED SPEECH THIS AM TO SPEECH THERAPIST, DR FERRARA INFORMED, AND EVLUATED PT. 500ML BOLUS ORDERED, INSTRUCTED PT TO LAY FLAT FOR MORE BLOOD FLOW TO HEAD. PT BEGAN TO FEEL LIKE SYMPTOMS IMPROVING. NO TROUBLE WITH SWALLOWING OR EATING. PT SEEN BY DR GUZMAN, PT C/O PAIN IN HIP TO DR GUZMAN, XRAY ORDERED-- SEE RESULTS. ORDERS ACKNOWLEDGED AND IMPLEMENTED FOR ADMISSION TO REHAB. REPORT CALLED TO PRIMITIVO ADAM. PT LEFT UNIT WITH ALL BELONGINGS. TELE REMOVED.
--- NOTE | 2018-12-20 17:35 | NUR ---
Pt dcing to 5N acute rehab this evening. Pt and family updated at bedside earlier today. Care team updated.
--- NOTE | 2018-12-20 21:03 | D ---
[facility] [place] [address] DISCHARGE SUMMARY Name: BRIAN REEYS Room #: 212-P [facility] ..#: [id number] Admission: 12/18/18 Attend Phys: Elliott Salgado MD Discharge: 12/20/18 Date of : 29 Report #: [id number] THIS REPORT FOR: //name// CC: Luis Culver MD DATE OF SERVICE: 12/20/2018 HOSPITAL COURSE: The patient is an 88-year-old female who was admitted to the Emergency Room. She had symptoms of transient slurring of speech and moderate sudden onset left-sided weakness that were first noted after a fall on the evening prior to her arrival at the Emergency Room. Stroke protocol was initiated. No evidence of bleeding or significant infarct was found on scans that were done. The patient was seen by Dr. Culver in the Emergency Room. He recommended aggressive management of her risk factors. The patient has a known history of atrial fibrillation and a permanent pacemaker and is anticoagulated with Coumadin. She was therapeutic at the time of arrival, with an INR of 2.4, I believe. She was not taking an antiplatelet drug at the time of this admission. She was not on a statin at time of admission because of previous problems with muscle aches that were felt to be associated with Crestor. She was subsequently started on Lipitor during this hospital stay. We will continue to monitor her further symptoms. Blood pressure control was fairly good with systolic blood pressures varying between 125 and 170 approximately, most of the time. The patient also revealed that since the fall she has been having some left chest soreness and point tenderness, but the chest x-ray failed to reveal any overt fractures or effusions or infiltrates. I think it is likely given a bruise the patient saw just below her left chest wall that she does have a fracture or cracked rib. Since there were no complications of that injury, I advised supportive therapy with Tylenol as needed and consider addition of topicals in the future if this is not adequate. The patient also reveals that for the past year or so she has been having pain in her right inferior gluteal/hip area. She has noticed that more in the last day or two, while lying in bed most of time. She has not had any radiographs performed on this since her fall. I am obtaining a 2-view of that joint and the pelvis as part of her workup. [address] [address] DISCHARGE SUMMARY Name: BRIAN REYES Room #: 212-P [facility] .R.#: [id number] Admission: 12/18/18 Attend Phys: Elliott Salgado MD Discharge: 12/20/18 Date of : 29 Report #: [id number] The patient was also seen by her road production general manager Dr. Martir Monteiro and her pacemaker is working normally and they recommended no further changes in her cardiac meds. The patient was also seen by Dr. Luis Matthews from the Department of Rehabilitation medicine and physiatry. It was felt that the patient would be a reasonably good candidate for a short inpatient skilled stay on the [address] [place] [address] rehab unit. Arrangements were made on day of discharge for the patient to be discharged from the acute care bed and admitted to the rehab unit. Her medications list will be as follows, multivitamin daily, calcium carbonate with vitamin D3 twice daily, warfarin 3 mg by mouth nightly at 6:00 p.m., lisinopril 20 mg by mouth daily, amiodarone 100 mg daily, amlodipine 5 mg daily, atorvastatin 40 mg nightly, aspirin 325 mg by mouth daily and acetaminophen 650 mg q.i.d. p.r.n. moderate pain. DISCHARGE DIAGNOSES: Include: 1. Lacunar infarct, right-sided. 2. Hypertension. 3. Hyperlipidemia. 4. Chronic paroxysmal atrial fibrillation. 5. History of permanent pacemaker placement. 6. Osteoporosis. I will follow with the patient on the rehab unit with her care being taken over by Dr. Luis Matthews and I have recommended that Dr. Culver also continue seeing her. Her financial services education consultant to be notified as needed if the cardiac and/or vascular status changes. <ELECTRONICALLY SIGNED> By: Elliott Salgado MD 12/20/18 2103 1553 08 Elliott Salgado MD /nt
--- NOTE | 2018-12-21 14:17 | HC ---
Formerly [facility] [place] [address] CONSULTATION Name: BRIAN REYES Room #: 212-P [facility] IN ..#: [id number] Admission: 12/18/18 Attend Phys: Elliott Salgado MD Discharge: 12/20/18 Date of : 28 Report #: [id number] THIS REPORT FOR: //name// CC: Elliott Salgado DATE OF SERVICE: 12/18/2018 HISTORY OF PRESENT ILLNESS: This is an 88-year-old female patient who was evaluated by me in the Emergency Room at the request of Emergency Room physician, Dr. Euceda. The patient is a poor historian. She was here with dizziness yesterday. She had some imbalance at that time, but the patient progressively is becoming worse. Her speech has become slurred. She is weak on the left side and she has become more unsteady. She did not have a stroke in the past, but she does have a pacemaker. She does not know whether she was ever diagnosed with atrial fibrillation or not. She does have a history of hypertension. REVIEW OF SYSTEMS: A 14-point review of systems was carried out and it was relevant as described above. PAST MEDICAL HISTORY: Negative for stroke. FAMILY HISTORY: Negative for early age strokes. SOCIAL HISTORY: She indicates she does not smoke or drink alcohol. PHYSICAL EXAMINATION: Indicate she is alert. Her speech is dysarthric, but understandable. She does not have any trouble with comprehension. She is oriented and she can follow simple commands. 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 She is right handed. She is significantly weak in the left upper and left lower extremity. Strength is estimated to be about 3/5. Her sensation appeared to be present. Cardiac examination is positive for pacemaker. Respiratory examination showed no respiratory difficulty. IMPRESSION: This is a difficult patient to evaluate. She has progressively worsening neurological symptoms either from yesterday or even prior to that. The thing we need to exclude is a basilar artery thrombosis. This is because she has ataxia, she has weakness, she has dizziness and she thinks she had diplopia. The other possibility is a lacunar cerebrovascular accident, which can also fluctuate and become worse and is much more common. Situation is difficult in this patient. I got a stat noncontrast CT of the head and I reviewed with the radiologist. She does not have any obvious cerebellar or brainstem CVA, but CT scan can miss that. I talked to generation technician to see if we can do an MRI if her pacemaker is compatible with MRI. They tell me that they have to follow the protocol and the earliest they can [place] [address] CONSULTATION Name: BRIAN REYES Jamar Room #: 212-P [facility]..#: [id number] Admission: 12/18/18 Attend Phys: Elliott Salgado MD Discharge: 12/20/18 Date of : 29 Report #: [id number] on Monday. Next option is doing CT angiogram in this patient as well as perfusion to see if the abnormality can be detected, especially basilar artery thrombosis can be detected. Her creatinine is slightly high at 1.1, the normal being 0.6-1. BUN is 17, which is normal. She has creatinine as high as 1.3 previous to that. I talked to the radiologist, Dr. Childs and he indicated that a GFR between 40-50 is okay and this patient should be okay for CT angiogram. I talked to the patient and the patient about all their options and they are okay with this plan and they understand very well the potential complication which can occur including with a CT angiogram, especially the kidney problems. I talked to Dr. Euceda and discussed with him, the best will be to give the patient a bolus of normal saline. I recommended he talks to either Nephrology or Radiology to see what they recommend about doing CT angiogram with this creatinine and GFR and if they allow that, then we may proceed with a CT angiogram and stroke protocol. If she does have a basilar artery thrombosis, then I think she should be transferred to some another facility. If she does not have a basilar artery thrombosis, we can assume it is a small vessel disease, which also fluctuates and then we can admit her here. If she is admitted here, she should be given aspirin and her blood pressure should be closely monitored and kept somewhat high. All of it was discussed with radiologist, Emergency Room physicians, documentation coordinator, patient and the patient's and the plan is to follow the above plan. Thank you very much for this referral and we will follow up this patient later on today after the other testing is done and talk to the family again. <ELECTRONICALLY SIGNED> By: Shun Culver MD 12/21/18 [id number] Shun Culver MD /nt
--- NOTE | 2019-01-01 12:00 | HC ---
[facility] [place] [address] CONSULTATION Name: BRIAN REYES Room #: 212-P [facility] IN M.R.#: [id number] Admission: 12/18/18 Attend Phys: Elliott Salgado MD Discharge: 12/20/18 Date of : 28 Report #: [id number] THIS REPORT FOR: //name// CC: Elliott Salgado DATE OF SERVICE: 12/19/2018 HISTORY OF PRESENT ILLNESS: The patient is an 88-year-old white female with complaints of "vertigo," loss of balance, fell on to her left side, could not get up. She had problems speaking, weakness of the left side, left facial palsy. She was thought to have a lacunar stroke with left hemiparesis. She was seen by Neurology, underwent further diagnostic evaluation. She was noted to have some dysarthria, which has improved. She notes improvement regarding the left-sided weakness. We are seeing her in Rehabilitation Medicine consultation. PAST MEDICAL HISTORY: Includes hypertension, degenerative arthritis, sick sinus syndrome, status post permanent pacemaker. She has had a history of vertigo on and off, elevated lipids, and osteoporosis. FAMILY HISTORY: Mother had an [place]. ALLERGIES: TO SULFA. CURRENT MEDICATIONS: Please see the full medication listing. SOCIAL HISTORY: , lives with her , house, 1 floor, 2 steps in through the garage. Uses a cane at times. can be of little assistance, although he is a 92-year-old, she noted. REVIEW OF SYSTEMS: No current complaints of chest pain, shortness of breath or abdominal discomfort. PHYSICAL EXAMINATION: GENERAL: She is an alert, pleasant, 88-year-old white female, in no obvious distress. VITAL SIGNS: Last recorded temperature is 98.2, pulse 59, respirations 18, blood pressure 148/106. HEENT: Appeared to be benign. She appears to have a depressed left nasolabial fold. EOMs appeared full. No obvious visual field neglect to confrontation. She is able to verbalize quite well. EXTREMITIES: She has functional range of motion of both upper extremities. She has some mild decreased coordination of the left upper extremity compared to the right although strength appeared relatively symmetric. Left lower extremity again coordination appeared slightly decreased, left compared to the right. Tone appeared to be intact to both upper and lower extremities. [address] [address] CONSULTATION Name: AMYBRIAN M Room #: 212-P [facility]#: [id number] Admission: 12/18/18 Attend Phys: Elliott Salgado MD Discharge: 12/20/18 Date of : 28 Report #: [id number] ASSESSMENT: An 88-year-old white female with the following problem list: 1. Noted lacunar stroke with left hemiparesis, which has improved. 2. Dysarthria, has improved. 3. Functional mobility and activities of daily living deficits with further assessment underway. 4. Hypertension. 5. Hyperlipidemia. 6. Multiple joint osteoarthritis. 7. Osteoporosis. 8. Fall due to the noted stroke. PLAN: Therapy evaluations are underway. She certainly may benefit from a short acute in-hospital inpatient rehabilitation stay depending upon her therapy needs. At this point, we will be glad to follow along with you. <ELECTRONICALLY SIGNED> By: Luis Matthews MD 01/01/19 1200 [id number] [id number] Luis Matthews MD /PMT
== END 2018-12-20 16:40 | DRG 65 ==
LOC: ER 11:30 → EROBS 14:11 → 2N 14:11
PROVIDERS: Emergency Medicine; Psychiatry & Neurology Neuromuscular Medicine; ADMIT Internal Medicine
DX: I63.81 Other cerebral infarction due to occlusion or stenosis of small artery (principal); G81.94 Hemiplegia, unspecified affecting left nondominant side; I44.2 Atrioventricular block, complete; H93.13 Tinnitus, bilateral; I10 Essential (primary) hypertension; M19.90 Unspecified osteoarthritis, unspecified site; I49.5 Sick sinus syndrome; M81.0 Age-related osteoporosis without current pathological fracture; E78.5 Hyperlipidemia, unspecified; R47.1 Dysarthria and anarthria; I48.0 Paroxysmal atrial fibrillation; I35.2 Nonrheumatic aortic (valve) stenosis with insufficiency; Z95.0 Presence of cardiac pacemaker; Z88.2 Allergy status to sulfonamides; Z79.01 Long term (current) use of anticoagulants; Z82.49 Family history of ischemic heart disease and other diseases of the circulatory system; Z79.82 Long term (current) use of aspirin; Z79.899 Other long term (current) drug therapy
CPT/HCPCS: 10081

== ENCOUNTER 2018-12-20 12:18 | Inpatient (IN) | payer OTHER, BC ==
[~2018-12-20] VITALS: Ht 165.1 cm; Wt 61.2 kg
[2018-12-20] MEDS ORDERED: ASA5UEC PO (15:39)
[2018-12-20] MEDS ORDERED: LIPITOR40 MG PO (15:39)
[2018-12-20] MEDS ORDERED: ACETAMINOPHEN325 M1 PO (15:40)
[2018-12-20 17:40] VITALS: BP 150/73
--- NOTE | 2018-12-20 18:51 | NUR ---
ASSUMED CARE OF PT AT 1700. PT IS A&OX4 AND VITAL SIGNS ARE STABLE. REPORT RECEIVED FROM PREVIOUS NURSE PRIOR TO PT ARRIVAL ON UNIT. PT ASSISTED INTO BED. ADMISSION ASSESSMENT, EDUCATION, VITAL SIGNS, AND WEIGHT COMPLETED. ADMISSION FORMS SIGNED AND PLACED IN CHART. CONSULTS NOT CALLED AT THIS TIME, WILL NOTIFY ONCOMMING NURSE. FALL PRECAUTIONS IN PLACE AND NURSING WILL CONTINUE TO MONITOR.
[2018-12-20 20:15] VITALS: BP 127/57
--- NOTE | 2018-12-21 01:41 | NUR ---
PT ALERT AND ORIENTED X 4. AMB TO BR WITH WALKER AND ASSIST X 1. LEFT SIDED WEAKNESS. PT TOOK HS MEDS WITH WATER WITHOUT DIFFICULTY. PT C/O PAIN IN LEFT RIBS AND RIGHT HIP AT START OF SHIFT. TYLENOL GIVEN WITH ADEQUATE PAIN RELIEF VERBALIZED. BED ALARM ON FOR SAFETY. PT APPEARS TO BE SLEEPING ON HOURLY ROUNDS.
[2018-12-21 05:47] LABS: HEMATOCRIT 41.2 % (37.0-47.0); HEMOGLOBIN 13.8 gm/dL (12.0-15.0); MCH 31.9 pg (26.0-34.0); MCHC 33.5 g/dL (28.0-37.0); MCV 95.2 fL (80.0-100.0); RBC 4.33 mil/uL (4.20-5.00); RDW 13.8 % (10.5-14.5); WBC 9.8 thou/uL (4.0-11.0)
[2018-12-21 06:06] LABS: CALCIUM 9.9 mg/dL (8.5-10.1); CREATININE 1.3 mg/dL (0.6-1.0); POTASSIUM 3.4 mmol/L (3.5-5.1)
[2018-12-21 08:10] VITALS: BP 152/66
--- NOTE | 2018-12-21 12:12 | NUR ---
Nutrition: pt now on rehab unit with lacunar CVA, Left sided weakness. Received consult via rehab admission orders. ST placed pt on mechanically altered chopped diet due to upper extremity weakness, no issues swallowing. Speech difficulty. Good appetite reported, PO doc so far as 60-75% of meals. Stable weights. Started on statin on acute for HLD. RD provided written materials on heart healthy diet on 12/19. Consider low nutrition risk.
--- NOTE | 2018-12-21 15:24 | NUR ---
ASSUMED CARES AT 0700. PT AWAKE, ALERT AND ORIENTED *4. C/ O RIGHT HIP PAIN, PAIN MEDICATION ADMINISTERED NEEDED. VITALS REMAIN STABLE. PT CONTINUES TO HAVE LEFT SIDED WEAKNESS, UP WITH 1 MIN ASSIST, GB AND WALKER AND TOLERATED WELL. SLEEPING AFTER THERAPY. Q1H VISUAL CHECKS. CALL LIGHT WITHIN REACH. FALL PRECAUTIONS IN PLACE
[2018-12-21 19:14] VITALS: BP 146/58
--- NOTE | 2018-12-22 04:02 | NUR ---
assumed care at approx 1900 evening 12/21. pt lying in bed with head of bed elevated at change of shift. pt assisted up to bathroom to void before hs. pto took hs meds with water tolerating well. pt appears to be sleeping soundly with hourly rounding. bed alarm on and call light in reach. will continue to monitor.
[2018-12-22 09:21] VITALS: BP 125/65
--- NOTE | 2018-12-22 13:58 | NUR ---
ASSUMED CARES AT 0700. PT AWAKE, ALERT AND ORIENTED*4. DENIES PAIN. VITALS REMAIN STABLE. PT CONTINUES TO HAVE LEFT SIDED WEAKNESS, UP WITH 1 MIN ASSIST, GB AND WALKER AND TOLERATED WELL. HAD ALL HER MEALS AT THE DINING AREA. SLEEPING AFTER THERAPY. Q1H VISUAL CHECKS. CALL LIGHT WITHIN REACH. FALL PRECAUTIONS IN PLACE
[2018-12-22 20:05] VITALS: BP 114/51
--- NOTE | 2018-12-23 01:05 | NUR ---
assumed care at approd 1900 evening 12/22. pt lying in bed resting at change of shift. pt took hs meds with water tolerating well. pt appears to be sleeping soundly with hourly roundinig checks. bed alarm on and call light in reach. will continue to monitor.
[2018-12-23 08:00] VITALS: BP 143/63
--- NOTE | 2018-12-23 16:42 | NUR ---
ASSUMED CARE OF PT AT 0715. PT IS A&OX4 AND VITAL SIGNS ARE STABLE. PT DENIES PAIN AND AMBULATED [facility] STAFF AROUND UNIT. CALLS APPROPRIATLEY FOR STAFF. FALL PRECAUTIONS IN PLACE AND NURSING WILL CONTINUE TO MONITOR.
[2018-12-23 19:30] VITALS: BP 118/56
--- NOTE | 2018-12-24 05:28 | NUR ---
ASSUMED PT CARE AT 1900. PT A/OX4, VITAL SIGN STABLE, ASSESSMENT CHARTED. NO COMPLAINTS OF PAIN. PT REMAINED IN RECLINER CHAIR THROUGH THE NIGHT. PT VERBALIZED BEING MORE COMFORTABLE IN THE CHAIR. RESTED WELL THROUGH THR NIGHT WITHOUT ANY ACUTE CHANGES. PROGRESSING WELL RTHROUGH THROUGH THR NIGHT5.
--- NOTE | 2018-12-24 09:57 | HC ---
[facility] [place] [address] CONSULTATION Name: BRIAN REYES Room #: 512-P [facility] IN M.R.#: [id number] Admission: 12/20/18 Attend Phys: Luis Matthews MD Discharge: Date of : 29 Report #: [id number] THIS REPORT FOR: //name// CC: Luis Salgado DATE OF SERVICE: 12/23/2018 NEUROBEHAVIORAL STATUS EXAM ATTENDING PHYSICIAN: Luis Matthews MD DIGITAL ASSISTANT: Armen Benavides, PhD CLINICAL PRESENTATION: The patient is an 88-year-old female admitted to the rehabilitation unit at [facility] for a comprehensive inpatient rehabilitation program to improve functional mobility, activities of daily living and self-care and mental status secondary to deficits from a cerebrovascular accident. The patient was admitted to the hospital with a left hemiparesis, dysarthria, functional mobility and activities of daily living deficits, hypertension, hyperlipidemia, multiple joint osteoarthritis, osteoporosis and a fall as a result of the stroke. A complete description of her medical condition, history and medications can be found in her medical record. Neuropsychological consultation was requested to provide assistance in the assessment of cognitive and emotional status and to provide recommendations and services. Prior to this most recent admission, she was living with her in their home. The patient reports having had a fall in her living room that resulted in pain from trauma to her ribs. She had 11 children. Five children have . She is a high school graduate. The patient was primarily a homemaker throughout her life. There was no reported history of treatment for anxiety/depression or alcohol/drug abuse. TECHNIQUES UTILIZED: Clinical interview, review of medical records, staff consultation and behavioral observation, mini mental status exam 2 standard version and clock drawing and verbal fluency assessment. EXAMINATION FINDINGS: The patient was alert and cooperative with the assessment. She accurately described events surrounding her admission. There is no evidence of aphasia. Her thoughts are logical and goal oriented. There is no evidence of thought disorder. She does not report auditory or visual hallucinations. Her reported symptoms include tiredness and fatigue, pain, which awakens her during the night and feeling unsteady on her feet. She does not report problems with appetite, memory, word finding, anxiety or depression. She describes her cognitive functioning [place] [address] CONSULTATION Name: BRIAN REYES Room #: 512-P [facility] IN [facility]#: [id number] Admission: 12/20/18 Attend Phys: Luis Matthews MD Discharge: Date of : 29 Report #: [id number] Her performance on the MMSE 2 brief version is within normal limits with a raw score of 16. She was 3/3 for initial registration, 5/5 for orientation to time and place and 2/3 for immediate recall of 3 items after a brief time delay and distraction. Performance on the MMSE 2 standard version was 27/30, which is within normal limits. The patient was 4/5 for serial sevens, 2/2 for naming, 1/1 for repetition, 3/3 for auditory comprehension. She could read and follow single command. The patient had some difficulty in writing a sentence. She was able to copy a simple geometric design. Clock drawing was within normal limits. Letter fluency was in the average range with a raw score of 19, T score of 47 and percentile rank of 38. Category fluency was in the low average range with a raw score of 24, T score 37 and percentile rank at 10. Overall, total fluency was in the average range with a raw score of 44, T score of 44 and percentile rank of 27. The patient appears to be presenting with deficits in category fluency. Deficits in category fluency can suggest variability in memory and thought organization. 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 RECOMMENDATIONS: The patient will likely require increased assistance with aspects of activities of daily living upon discharge home. She indicates that she has been driving and managing her own medication, finances and nutrition. She stated that her has a dementia. Her has been staying with a daughter while she is in the hospital. She may require increased assistance to provide care for him as well as herself. While she is showing a good recovery in cognition, driving is a safety issue and further assessment is indicated to insure safety. Thank you very much for allowing me to provide the consultation on this patient. <ELECTRONICALLY SIGNED> By: Armen Benavides, PhD 12/24/18 [phone] Armen Benavides, PhD /nt
[2018-12-24 10:40] VITALS: BP 134/76
--- NOTE | 2018-12-24 12:13 | NUR ---
cm visited with pt, spouse and daughter reena [phone] at bedside. pt up in recliner chair, a & o x 3, and able to make her needs know. pt preferrs going by jessica. spouse quiet during visit. intro to cm, team meeting, and transition of care ie home health. pt reported " independent, live in house with steps to enter and 12 steps to basement for laundry, need to look into someone helping me with that like [employer]. manage own medication. still drive vehicle. spouse does not drive and right now staying with daughter since cant be home alone. was standing at sink to sponge bath, cant step over to get into tub to shower. had shower here and that was nice."/jessica. senior blue book provided for resources outside of home. daughter lives 45 min away.
--- NOTE | 2018-12-24 18:19 | NUR ---
ASSUMED CARE OF PT AT 0715. PT IS A&OX4, FORGETFUL AT TIMES, VITAL SIGNS ARE STABLE. DENIES PAIN AND PARTICIPATED IN SCHEDULED THERAPIES. STANDBY ASSISTANCE FOR TRANSFERS AND AMBULATION. PT REPORTS INCREASED FREQUENCY WITH URINATION. PROVIDER NOTIFIED AND ORDERS FOR UA OBTAINED. CALLING APPROPRIATELY FOR MEDICAITONS THIS EVENING. FALL PRECAUTIONS IN PLACE AND NURSING WILL CONTINUE TO MONITOR.
[2018-12-24 19:25] LABS: URINE BILIRUBIN NEGATIVE (Negative); URINE BLOOD NEGATIVE (Negative); URINE CLARITY CLEAR; URINE COLOR YELLOW; URINE GLUCOSE-RANDOM* NEGATIVE (Negative); URINE KETONES NEGATIVE (Negative); URINE NITRITE-REFLEX NEGATIVE (Negative); URINE PROTEIN (DIPSTICK) NEGATIVE (Negative); URINE SPECIFIC GRAVITY <= 1.005 (1.005-1.035); URINE UROBILINOGEN 0.2 E.U./dl (0.2-1.0)
[2018-12-24 19:29] LABS: URINE LEUKOCYTES-REFLEX 2+ (Negative)
[2018-12-24 19:40] VITALS: BP 133/55
[2018-12-24 19:44] LABS: BACTERIA-REFLEX None Seen /HPF (None Seen); CASTS None Seen /LPF (None Seen); CRYSTALS None Seen /LPF (None Seen); SQUAMOUS 0-3 Few /LPF (0-3); URINE RBC 0-2 Rare /HPF (0-2); URINE WBC-REFLEX >25 Many /HPF (0-5)
--- NOTE | 2018-12-25 01:52 | NUR ---
ASSESSMENT COMPLETED. PT ALERT AND ORIENTED.UP WITH WALKER TO THE BATHROOM.DENIES PAIN.VOIDING OKAY-SOME URGENCY BUT LESS FREQUENCY NOTED THROUGH NOC. AFEBRILE.CALLS [facility] NEEDS.
[2018-12-25 07:35] VITALS: BP 134/56
--- NOTE | 2018-12-25 13:58 | NUR ---
team meeting, recommendation: re team dc 15 hh (pt,ot,st nursing). ask if she can stay with her daughter at dc for bit before going home. will need fww
--- NOTE | 2018-12-25 15:43 | NUR ---
ASSUMED CARES AT 0700. PT AWAKE, ALERT AND ORIENTED*4. DENIES PAIN. VITALS REMAIN STABLE. PT CONTINUES TO HAVE URGENCY AND HAS BEEN INCONTINENT OF URINE*2 THIS SHIFT. URINE CONTINUES TO HAVE A STRONG ODOR. PT STARTED ON ORAL ANTIBIOTICS TODAY FOR UTI. CONTINUES TO HAVE LEFT SIDED WEAKNESS. UP WITH 1 MIN-CONTACT GUARD ASSIST, GB AND WALKER AND TOLERATED WELL. Q1H VISUAL CHECKS. CALL LIGHT WITHIN REACH. FALL PRECAUTIONS IN PLACE
[2018-12-25 19:20] VITALS: BP 125/83
--- NOTE | 2018-12-26 02:50 | NUR ---
ASSUMED CARE OF PT @1900 PT ASSESSED AT START OF SHIFT A&OX4. DENIES PAIN. TAKES PILLS WHOLE WITH WATER. UP WITH SBA WITH WALKER TO THE BATHROOM. LESS URGENCY AND FREQ OF URINE THIS SHIFT. HAD X1 OUT PUT SO FAR. FALL PREC IN PLACE AND CALL LIGHT WITHIN REACH WILL CONT WITH POC TILL EOS.
[2018-12-26 05:57] LABS: INR 1.7; PROTIME 17.6 Seconds (9.3-11.4)
[2018-12-26 07:15] VITALS: BP 137/59
--- NOTE | 2018-12-26 11:39 | NUR ---
ASSUMED CARES AT 0700. PT AWAKE, ALERT AND ORIENTED* 4. DENIES PAIN. VITALS REMAIN STABLE. ABDOMEN REMAIN SOFT AND ROUND, LAST BM 12/24. PT CONTINUES TO HAVE LEFT SIDED WEAKNESS, UP WITH 1 SBA, GB AND WALKER AND TOLERATED WELL. Q1H VISUAL CHECKS. CALL LIGHT WITHIN REACH. FALL PRECAUTIONS IN PLACE
[2018-12-26 19:20] VITALS: BP 118/51
--- NOTE | 2018-12-27 04:46 | NUR ---
assumed care at approx 1900 evening 12/26. pt sitting up in recliner dozing off and on. pt oriented x4, appropriate and cooperative. pt took hs meds with no problems. pt up to bathroom with 1 assist with walker. pt appears to be sleeping soundly with hourly rounding checks. bed alarm on and call light in reach. will continue to monitor.
[2018-12-27 06:23] LABS: INR 1.5; PROTIME 16.1 Seconds (9.3-11.4)
[2018-12-27 08:30] VITALS: BP 143/64
--- NOTE | 2018-12-27 18:39 | NUR ---
ASSUMED CARE OF PT AT 0715. PT IS A&OX4 AND VITAL SIGNS ARE STABLE. PT REPORTS NO BOWEL MOVEMENT SINCE 12/24. PO MEDICATIONS ADMINISTERED WITHOUT RESULTS. NURSING WILL ADMINISTER SUPPOSITORY PER ORDERS AT HS. PT CONTINUES TO REPORT FREQUENT URINATION AND STRESS INCONTINENCE. FALL PRECAUTIONS IN PLACE AND NURSING WILL CONTINUE TO MONITOR.
[2018-12-27 20:00] VITALS: BP 119/49
--- NOTE | 2018-12-28 04:20 | NUR ---
ASSUMED CARE ON 12/27/18 @ 19:15. IN RECLINER WITH EYES CLOSED, RESPIRATIONS EVEN AND UNLABORED. CHAIR ALARM IN PLACE AND FUNCTIONING. AWAKENED BY VOICE, PT COOPERATED WITH ASSESSMENT, ORIENTED X 3-4. CVA AND LEFT SIDE WEAKNESS NOTED. TOOK PO MEDS WHOLE WITH WATER STARTING WITH THE LARGEST AND TAKING MEDS ONE AT A TIME DESCENDING TO SMALLEST TABLET. CONTINUES TAKING CEPHALEXIN 500 MG PO FOR UTI. REPORTS NO BM TODAY. BED IN LOW POSITION, BED ALARM SET, CALL ALARM IN REACH, WILL CONTINUE 1 HOUR CHECKS FOR SAFETY.
[2018-12-28 05:18] LABS: INR 1.6; PROTIME 16.2 Seconds (9.3-11.4)
[2018-12-28 09:38] VITALS: BP 122/54
--- NOTE | 2018-12-28 11:41 | NUR ---
Nutrition followup: Pt continues on mechanically altered diet per ST. Continues to eat 100% of meals. No weight taken since 12/20 however prior stable weights reported. Continue as low nutrition risk.
--- NOTE | 2018-12-28 18:57 | NUR ---
Awake and alert, orientated x4. No s/o distress. Calm and cooperative. Conversive. Breath sounds clear t/o, bilaterally equal. Regular HR auscultated. Color pink with brisk capillary refill and palpable peripheral pulses. Active bowel sounds over soft, rounded abdomen. Ambulates to toilet without diff. Voided clear yellow urine. Took meds without diff.
[2018-12-28 19:50] VITALS: BP 121/50
--- NOTE | 2018-12-29 04:00 | NUR ---
assumed care at approx 1900 evening 12/28. pt sitting up in recliner at change of shift. pt alert and oriented x4 appropriate and cooperative. pt stated she was tired and ready for bed. pt took hs meds without difficulty and fell asleep fairly early. pt appears to be sleeping soundly with hourly rounding checks. bed alarm on and call light in reach. will continue to monitor.
[2018-12-29 05:39] LABS: INR 1.5; PROTIME 15.6 Seconds (9.3-11.4)
[2018-12-29 08:00] VITALS: BP 139/65
--- NOTE | 2018-12-29 17:20 | NUR ---
ASSUMED CARES AT 0700. REPORTS SLEPT WELL LAST NIGHT. VSS ON RA. ALERT AND ORIENTED X4, ABLE TO VOICE HER NEEDS. REASSESSMENT PER CHART. MEDS GIVEN ORDERED. LAST BM WAS YESTERDAY. CONTINUE TO BE ON ABT FOR UTI. HAS BEEN CONTINENT BLADDER. OFFER TOILETING FREQUENTLY. WARM APPLE JUICE GIVEN WILL CONTINUE TO MONITOR NEED FOR PRN LAXATIVE. PT CONTINUES TO HAVE LEFT SIDED WEAKNESS, UP WITH 1 SBA, GB AND WALKER AND TOLERATED WELL. UP TO DINNING ROOM FOR MEALS. SHE SAID SHE IS GETTING BETTER EACH DAY. DENIES PAIN, NV, SOB. TAKE MEDS ONE AT THE TIME WITH THIN LIQUID, TOLERATE WELL. Q1H VISUAL CHECKS. CALL LIGHT WITHIN REACH. FALL PRECAUTIONS IN PLACE. WILL GIVE REPORT TO NIGHT NURSE TO CONTINUE TO MONITOR.
[2018-12-29 19:30] VITALS: BP 119/47
--- NOTE | 2018-12-30 02:57 | NUR ---
ASSUMED CARE AT APPROX 1900 EVENING 12/29. PT ALERT AND ORIENTED X4, SITTING UP IN RECLINER AT CHANGE OF SHIFT. PT PLEASANT AND COOPERATIVE. PT TOOK HS MEDS WITH NO PROBLEMS AND APPEARS TO BE SLEEPING SOUNDLY WITH HOURLY ROUNDING CHECKS. BED ALARM ON AND CALL LIGHT IN REACH. WILL CONTINUE TO MONITOR.
[2018-12-30 06:11] LABS: INR 1.6; PROTIME 16.3 Seconds (9.3-11.4)
[2018-12-30 10:31] VITALS: BP 138/67
--- NOTE | 2018-12-30 16:46 | NUR ---
ASSUMED CARE OF PT AT 0715. PT IS A&OX4. IS ON ROOM AIR. IS STABLE. IS UP WITH 1 ASSIST, GB, WALKER. FALL PRECAUTIONS & HOURLY ROUNDING MAINTAINED. DENIES PAIN. LABS & VITALS REVIEWED. PT IS CURRENTLY PREPARING TO EAT DINNER. IS UP IN RECLINER. CALL LIGHT WITHIN REACH. WILL CONTINUE TO MONITOR.
[2018-12-30 20:00] VITALS: BP 119/78
--- NOTE | 2018-12-31 02:51 | NUR ---
PT ALERT AND ORIENTED X 4. AMB TO BR WITH WALKER AND ASSIST X 1 WITHOUT DIFFICULTY. PT DENIES PAIN OR DISCOMFORT. BED ALARM ON FOR SAFETY. PT APPEARS TO BE SLEEPING ON HOURLY ROUNDS.
[2018-12-31 05:58] LABS: INR 1.8; PROTIME 18.9 Seconds (9.3-11.4)
[2018-12-31 08:30] VITALS: BP 122/54
[2018-12-31 09:00] VITALS: BP 122/54
--- NOTE | 2018-12-31 15:03 | NUR ---
ASSUMED CARE OF PT AT 0715. REPORTS SLEPT WELL. VSS ON RA. PT IS A&OX4 ABLE TO VOICE HER NEEDS. PT WANTS TO BE M.I IN ROOM. DISCUSSED WITH DR. PEARL AND THERAPISTS. UP WITH 1 ASSIST, GB, WALKER. PT OFTEN GOES TO DINNING ROOM FOR MEALS AND HAS GOOD APPETITE. FALL PRECAUTIONS & HOURLY ROUNDING MAINTAINED. DENIES PAIN. LABS & VITALS REVIEWED. INR 1.8 TODAY, NOTIFIED DR. GUZMAN CONTINUE ON 4MG COUMADIN TODAY.RESTING IN RECLINER. MEDS GIVEN WITH THIN LIQUID, TOLERATES WELL. ST WANTS PT TO CALL OUT FOR MEDS NOW. WILL CONTINUE TO REMIND PT.PT DENIES PAIN, SOB, N/V, CONSTIPATION.FALL PRECAUTION IN PLACE. CALL LIGHT WITHIN REACH. WILL CONTINUE TO MONITOR.
[2018-12-31 19:10] VITALS: BP 125/56
--- NOTE | 2018-12-31 23:15 | NUR ---
PT ASSESSMENT DONE AND VSS. MEDICATIONS GIVEN AND WELL TOLERATED. FALL PRECAUTIONS IN PLACE. HOURLY ROUNDING DONE. CALL LIGHT IN REACH. SLEEPING WELL. WILL CONTINUE TO MONITOR.
[2019-01-01 06:15] LABS: PROTIME 21.1 Seconds (9.3-11.4)
[2019-01-01 08:00] VITALS: BP 121/54
--- NOTE | 2019-01-01 12:00 | H ---
[facility] [place] [address] HISTORY AND PHYSICAL Name: BRIAN REYES Room #: 512-P ADM IN M.R.#: [id number] Admission: 12/20/18 Attend Phys: Luis Matthews MD Discharge: Date of : 29 Report #: [id number] THIS REPORT FOR: //name// CC: Luis Salgado DATE OF SERVICE: 12/20/2018 HISTORY AND PHYSICAL/POST-ADMISSION PHYSICIAN EVALUATION HISTORY OF PRESENT ILLNESS: The patient is an 88-year-old white female who has now been admitted for acute in-hospital inpatient rehabilitation with the lacunar cerebrovascular accident with left-sided weakness. Please see my prior consult dictation and please see the full history and physical. I agree with the physical examination findings. ASSESSMENT AND PLAN: As in the history and physical. She had left-sided weakness, which has improved, still has left-sided coordination deficits. She has a history of atrial fibrillation, on Coumadin and a permanent pacemaker. She also has some mild dysphagia. Past medical history, allergies, social history, habits are per the history and physical. MEDICATIONS: Please see the full medication listing. REVIEW OF SYSTEMS: She did not complain of any chest pain, shortness of breath, abdominal discomfort. She does have some decreased coordination of that left side. No complaints of numbness or tingling. PHYSICAL EXAMINATION: GENERAL: She is a pleasant 88-year-old white female in no obvious distress. VITAL SIGNS: Temperature 97.8, pulse 75, respirations 18, blood pressure 127/57. NEUROLOGIC: The patient is alert, follows basic 1 step commands. Facies are symmetric. No obvious left-sided visual field neglect. CHEST: Sounded clear to auscultation. CARDIOVASCULAR: Regular rate and rhythm. ABDOMEN: Bowel sounds positive, nontender. GENITOURINARY AND RECTAL: Deferred. EXTREMITIES: She does have some decreased coordination of the left upper and left lower extremity and upon getting up, has some decreased gait, balance with ataxia. She has been needing mod assist with basic sit to stand. Again, please see the full examination and the history and physical. ASSESSMENT: [address] [address] HISTORY AND PHYSICAL Name: REYESBRIAN Room #: 512-P ADM IN ..#: [id number] Admission: 12/20/18 Attend Phys: Luis Matthews MD Discharge: Date of : 28 Report #: [id number] 1. Left lacunar cerebrovascular accident. 2. Left-sided weakness. 3. Atrial fibrillation. 4. History of permanent pacemaker. 5. Hypertension. 6. Hyperlipidemia. 7. Constipation. PLAN: From a postadmission physician evaluation perspective, there are no relevant changes since the preadmission screening. Please see the above review of prior and current medical and functional conditions and comorbidities. Please see the patient's previous and current functional status. As far as risk of complications, the patient has multiple medical comorbidities as noted above. Initial plan of care involves the interdisciplinary acute inpatient rehabilitation program. Measurable functional goals would be for her to become modified independent with transfers, mobility and ADLs as well as improvement with swallowing and cognition, so that she can return back to the home setting. Prognosis is reasonably good with estimated length of stay probably 10-14 days and likely longer as warranted. Potential barriers would include her multiple medical comorbidities and decreased functional status. The patient meets diagnostic criteria for an acute in-hospital inpatient rehabilitation stay. She meets the medical necessity criteria. We will have the loss control consultant physicians continue to follow. She does have the tolerance for therapies and has appropriate discharge goals back to the home setting. <ELECTRONICALLY SIGNED> By: Luis Matthews MD 01/01/19 1200 [id number] Luis Matthews MD /[facility]
--- NOTE | 2019-01-01 12:00 | PLAN ---
[facility] [place] [address] REHAB UNIT PLAN OF CARE Name: BRIAN REYES Room #: 512-P ADM IN M.R.#: [id number] Admission: 12/20/18 Attend Phys: Luis Matthews MD Discharge: Date of : 28 Report #: [id number] THIS REPORT FOR: //name// CC: Luis Salgado DATE OF SERVICE: 12/22/2018 PROGRESS NOTE/OVERALL PLAN OF CARE SUBJECTIVE: The patient is seen back today in followup. She is in no distress. Last recorded temperature 36.7, pulse 66, respirations 16, blood pressure 125/65. She was sitting up in her bedside chair. No focal neurologic changes. She has been working in therapies with transfers at a min assist. Gait 25 feet with a front-wheeled walker. She does have decreased left lower extremity strength. Gait is mod assist with some unsteadiness, some decreased foot clearance. She has ugxu-vl-gvenhdsd cognitive deficits with ikudoujd-yq-pdrqyb memory deficits. Swallowing is mechanical soft, thin. In occupational therapy, she is min assist for lower body dressing. ASSESSMENT: 1. Lacunar cerebrovascular accident. 2. Left-sided weakness. 3. Atrial fibrillation. 4. History of permanent pacemaker. 5. Hypertension. 6. Hyperlipidemia. 7. Constipation. PLAN: The overall plan of care is based on the preadmission screen, post-admission physician evaluation, and information garnered from therapy assessments. 1. Estimated length of stay is probably over the next 10 days to 2 weeks and likely longer as warranted. 2. Medical prognosis is reasonably good. 3. Anticipated interventions includes the interdisciplinary acute inpatient rehabilitation program. 4. Anticipated functional outcomes would be for the patient to become modified independent with transfers, mobility, ADLs, and ideally with cognition, communication as well. 5. Discharge destination would be back to the home setting where she lives with her , although her has dementia and is currently staying with her daughter, so it is likely she may end up going to stay with her daughter as well per our discussion. 6. Expected therapy by discipline includes PT, OT and speech 1 hour per day [address] [address] REHAB UNIT PLAN OF CARE Name: BRIAN REYES Room #: 512-P ADM IN .R.#: [id number] Admission: 12/20/18 Attend Phys: Luis Matthews MD Discharge: Date of : 28 Report #: [id number] each 5 days a week throughout the duration of the acute inpatient rehabilitation stay. <ELECTRONICALLY SIGNED> By: Luis Matthews MD 01/01/19 1200 0945 1225 Luis Matthews MD /PMT
--- NOTE | 2019-01-01 12:57 | NUR ---
team meeting, recommendation dc 15th home with daughter to daughter home in [place], pt and spouse will stay with daughter. pt will need assist with pills and bills, no driving until cleared my md. [facility] ( pt, ot, st, nursing, sw).
[2019-01-01 19:00] VITALS: BP 121/59
--- NOTE | 2019-01-01 20:09 | NUR ---
ASSUMED CARE OF PT AT 0715. PT IS A&OX4 AND VITAL SIGNS ARE STABLE.
--- NOTE | 2019-01-01 20:13 | NUR ---
ASSUMED CARE OF PT AT 0715. PT IS A&OX4 AND VITAL SIGNS ARE STABLE. PT DENIES PAIN AND PARTICIPATED IN SCHEDULED THERAPIES. CALLS APPROPRIATELY FOR ASSISTANCE. MOVED TO APARTMENT THIS SHIFT. PT STATES THAT SHE HAS INFORMED DAUGHTER. NO CONTACT INFORMATION AT THIS TIME FOR NEXT OF KIN. FALL PRECAUTIONS IN PLACE AND NURSING WILL CONTINUE TO MONITOR.
--- NOTE | 2019-01-01 23:11 | NUR ---
PT ASSESSMENT DONE AND VSS. MEDICATION GIVEN AND WELL TOLERATED. FALL PRECAUTIONS IN PLACE. HOURLY ROUNDING. CALL LIGHT IN REACH. SLEEPING WELL. WILL CONTINUE TO MONITOR.
[2019-01-02 05:55] LABS: PROTIME 20.9 Seconds (9.3-11.4)
[2019-01-02 07:50] VITALS: BP 113/51
--- NOTE | 2019-01-02 12:00 | NUR ---
DISCHARGE PLANNING. ANTICIPATED DISCHARGE PLANNED 01/04 PER UNIT CM. DISCHARGE PLAN IS DISCHARGE TO HOME WITH [facility]. REFERRAL FAXED TO [facility] PER REQUEST. CALL PLACED TO [facility] INTAKE, SPOKE WITH [facility]. ACCEPTING OF PATIENT AT DISCHARGE. [facility] TO FACILITATE HH NEEDS ONCE ORDERS RECEIVED. FOLLOWING.
--- NOTE | 2019-01-02 19:21 | NUR ---
ASSUMED CARE OF PT AT 0715. PT IS A&OX4, FORGETFUL, VITAL SIGNS ARE STABLE. DENIES PAIN AND PARTICIPATED IN SCHEDULED THERAPIES. MOD I IN ROOM, FALL EDUCATION PROVIDED TO PT. PT FAILED TO CALL FOR MEDICATIONS DURING DAY SHIFT, NURSE ALLOWED PT 30-60 MINUTES TO CALL FOR MEDICAITONS. PT REMINDED TO CALL NURSING STAFF FOR MEDICAITONS. FALL PRECAUTIONS IN PLACE AND NURSING WILL CONTINUE TO MONITOR.
[2019-01-02 21:21] VITALS: BP 128/56
--- NOTE | 2019-01-03 01:35 | NUR ---
assumed care at approx 1900 evening 01/02. pt sitting up in recliner in apt at change of shift. pt alert and oriented x4, appropriate and cooperative. pt modified independent in room. pt assisted with gown change at hs and pt went to bed fairly early after hs meds given. pt appears to be sleeping soundly with hourly rounding checks. call light in reach. will continue to monitor.
[2019-01-03 05:47] LABS: INR 2.2; PROTIME 22.6 Seconds (9.3-11.4)
[2019-01-03 09:00] VITALS: BP 127/61
[2019-01-03] MEDS ORDERED: COUMADIN 4 MG TA4 M1 PO (09:42)
[2019-01-03] MEDS ORDERED: METAMUCIL FIBE3.4 GM PO (09:43)
--- NOTE | 2019-01-03 14:42 | NUR ---
ASSUMED CARE OF PT AT 0715. PT IS A&OX4, FORGETFUL, VITAL SIGNS ARE STABLE. PT DENIES PAIN AND PARTICIPATED IN SCHEDULED THERAPIES. MOD IN IN ROOM, CALLING FOR ASSISTANCE APPROPRIATELY. CALLED APPROPRIATELY FOR MEDICATIONS PRIOR TO ADMINISTRATION. SCRIPTS SIGNED BY PROVIDER AND PLACED ON CHART IN SECURITY INCIDENT HANDLER. FALL PRECAUTIONS IN PLACE AND NURSING WILL CONTINUE TO MONITOR.
[2019-01-03 19:33] VITALS: BP 123/61
--- NOTE | 2019-01-03 22:25 | NUR ---
PT ALERT AND ORIENTED X 4. MODIFIED INDEPENDENT IN ROOM WITH WALKER. PT DENIES PAIN OR DISCOMFORT. PT CHECKED ON HOURLY ROUNDS.
[2019-01-04 05:52] LABS: INR 2.1; PROTIME 21.9 Seconds (9.3-11.4)
[2019-01-04 07:50] VITALS: BP 146/66
--- NOTE | 2019-01-04 09:55 | NUR ---
ASSUMED CARE OF PT AT 0715. REPORTS SLEPT WELL. PT IS A&OX4, ABLE TO VOICE HER OWN NEEDS. VITAL SIGNS ARE STABLE. PT DENIES PAIN, DIZZINESS. MOD IN IN ROOM, CALLING FOR ASSISTANCE APPROPRIATELY. CALLED APPROPRIATELY FOR MEDICATIONS PRIOR TO ADMINISTRATION. INR 2.1 THIS AM. CALL AND NOTIFIED LYNDSEY MALONEY TO CONTINUE ON 4MG COUMADIN THIS EVENING. SCRIPTS SIGNED BY PROVIDER AND PLACED ON CHART IN COPY DIRECTOR. WALKER IS HERE FOR PT, PT SIGNED PAPER AND MEDICAL CARE PAGER. OFFERED SUPPORITVE CARE. EDUCATION ABOUT MEDS, CHECK B/P DAILY AND MONITOR FLUID INTAKE, HYPOTENSIVE AND DISCUSSED ABOUT COUMADIN AND MONITOR BLEEDING REGULARLY AT HOME. DAUGHTER WILL PICK PT UP AT NOON. PT IS SITTING IN HER LIVING ROOM. WATCHING TV. CALL LIGHT WITHIN REACH. NO QUESTIONS OR CONCERN AT THIS MOMENT. NURSING WILL CONTINUE TO MONITOR.
[2019-01-04 10:36] VITALS: BP 146/66
[2019-01-04 12:06] VITALS: BP 146/66
== END 2019-01-04 12:09 | disposition home health service (06) | DRG 56 ==
LOC: ENTRNSPT 01-04 11:57 → EDTRNSPTSTS 01-04 11:59
PROVIDERS: Internal Medicine; Nurse Practitioner Family; ADMIT Physical Medicine & Rehabilitation
DX: I69.354 Hemiplegia and hemiparesis following cerebral infarction affecting left non-dominant side (principal); I63.9 Cerebral infarction, unspecified; Z95.0 Presence of cardiac pacemaker; I10 Essential (primary) hypertension; E78.5 Hyperlipidemia, unspecified; I48.0 Paroxysmal atrial fibrillation; K59.00 Constipation, unspecified; G31.84 Mild cognitive impairment of uncertain or unknown etiology; Z79.899 Other long term (current) drug therapy; Z79.01 Long term (current) use of anticoagulants; Z88.2 Allergy status to sulfonamides
CPT/HCPCS: 10112

== ENCOUNTER → 2019-04-01 | Outpatient (CLI) | payer OTHER, BC ==
[~2019-04-01] MED LIST changes: +ASA5UEC PO; +COUMADIN 4 MG TA4 M1 PO; +LIPITOR40 MG PO; +METAMUCIL FIBE3.4 GM PO
== END ==
LOC: SJCVC 09:26 → PT 09:26
DX: Z51.81 Encounter for therapeutic drug level monitoring (principal); I48.0 Paroxysmal atrial fibrillation; E78.5 Hyperlipidemia, unspecified; I10 Essential (primary) hypertension; M19.90 Unspecified osteoarthritis, unspecified site; Z79.01 Long term (current) use of anticoagulants

== ENCOUNTER → 2019-04-08 | Outpatient (CLI) | payer OTHER, BC | LOC: SJCVC 09:04 | DX: Z51.81 Encounter for therapeutic drug level monitoring (principal); I48.0 Paroxysmal atrial fibrillation; E78.5 Hyperlipidemia, unspecified; I10 Essential (primary) hypertension; M19.90 Unspecified osteoarthritis, unspecified site; Z79.01 Long term (current) use of anticoagulants ==

== ENCOUNTER → 2019-04-15 | Outpatient (CLI) | payer OTHER, BC | LOC: SJCVC 10:15 | DX: Z51.81 Encounter for therapeutic drug level monitoring (principal); I48.0 Paroxysmal atrial fibrillation; E78.5 Hyperlipidemia, unspecified; I10 Essential (primary) hypertension; M19.90 Unspecified osteoarthritis, unspecified site; Z79.01 Long term (current) use of anticoagulants ==

== ENCOUNTER → 2019-04-29 | Outpatient (CLI) | payer OTHER, BC | LOC: SJCVC 09:38 | DX: Z51.81 Encounter for therapeutic drug level monitoring (principal); I48.0 Paroxysmal atrial fibrillation; I10 Essential (primary) hypertension; E78.5 Hyperlipidemia, unspecified; Z79.01 Long term (current) use of anticoagulants ==

== ENCOUNTER → 2019-05-06 | Outpatient (CLI) | payer OTHER, BC | LOC: SJCVC 09:38 | DX: Z51.81 Encounter for therapeutic drug level monitoring (principal); I48.91 Unspecified atrial fibrillation; I10 Essential (primary) hypertension; E78.5 Hyperlipidemia, unspecified; Z79.01 Long term (current) use of anticoagulants; Z95.0 Presence of cardiac pacemaker ==